=== PATIENT | female | born 1990 | race Asian ===

== ENCOUNTER 2020-05-24 00:30 | Emergency (ER) | payer SELFPAY ==
[2020-05-24] MEDS ORDERED: SODIUM CHLORIDE 0.9% 1000 ML 1,000 ML IV ONE (00:50)
--- NOTE | 2020-05-24 01:12 | Emergency Department Report ---
ED Alcohol HPI - General Chief Complaint: Alcohol Stated Complaint: ETOH Time Seen by Provider: 05/24/20 00:46 Source: EMS Mode of arrival: Stretcher Limitations: Altered Mental Status, Physical Limitation - History of Present Illness Initial Comments: Patient is a 30-year-old female that presents emergency room for acute alcohol intoxication. Patient brought in by EMS. Report received from EMS. EMS states that the patient was being transported by Uber feeder driver and the Uber feeder driver dropped her off on Cipro because she kept being in the back of the car. Patient is unresponsive. Patient then picked up on the side of the road by EMS. Patient fell and has an abrasion on her right elbow and right knee. MD Complaint: alcohol intoxication Last Drink: unknown Chronic Alcohol Use: No Previous Visits for Alcohol Intoxication?: No Recent Trauma: Yes (Fall) Treatments Prior to Arrival: none - Related Data Allergies Allergy/AdvReac Type Severity Reaction Status Date / Time Unable to Assess Allergy Unverified 05/24/20 00:41 ED Review of Systems ROS: Stated complaint: ETOH Other details as noted in HPI Comment: Unobtainable due to pts medical conditions ED Past Medical Hx - Past Medical History Previous Medical History?: No - Surgical History Past Surgical History?: No - Family History Family history: no significant - Social History Smoking Status: Unknown if ever smoked Substance Use Type: Alcohol ED Physical Exam - General Limitations: Altered Mental Status General appearance: obtunded - Head Head exam: Present: atraumatic, normocephalic - Eye Eye exam: Present: normal appearance, PERRL Pupils: Present: normal accommodation - ENT ENT exam: Present: mucous membranes moist - Neck Neck exam: Present: normal inspection - Respiratory Respiratory exam: Present: normal lung sounds bilaterally. Absent: respiratory distress, wheezes, rales - Cardiovascular Cardiovascular Exam: Present: regular rate, normal rhythm. Absent: systolic murmur, diastolic murmur, rubs, gallop - GI/Abdominal GI/Abdominal exam: Present: soft, normal bowel sounds. Absent: distended, tenderness, guarding, rebound - Rectal Rectal exam: Present: deferred - Extremities Exam Extremities exam: Present: normal inspection - Back Exam Back exam: Present: normal inspection - Neurological Exam Neurological exam: Present: altered - Expanded Neurological Exam Expanded Best Eye Response ([place]): (2) open to pain Best Motor Response ([place]): (5) localizes to pain Best Verbal Response ([place]): (2) incomprehsible sounds [place] Total: 9 - Skin Skin exam: Present: warm, dry, normal color, abrasion (Right knee). Absent: rash ED Course - Reevaluation(s) Reevaluation #1: Patient is more arousable. Patient answering some questions. Patient oriented x1. 05/24/20 01:52 Reevaluation #2: Patient is awake alert and oriented x3. Patient states she drank a lot. Patient denies pain. 05/24/20 04:54 Reevaluation #3: Patient signed out to oncoming physician, Dr. Timothy Mendieta. The final disposition will come from Dr. Fowler. Patient will require reassessment and reevaluation prior to discharge once the patient is clinically sober. 05/24/20 06:04 ED Medical Decision Making - Lab Data Result diagrams: 05/24/20 01:58 05/24/20 01:58 - Radiology Data Radiology results: report reviewed CT HEAD WITHOUT CONTRAST INDICATION: Alcohol Intoxication. ams TECHNIQUE: Axial slices were obtained through the head. Coronal and sagittal reformatted images were obtained. COMPARISON: None available. FINDINGS: There is motion artifact limiting this exam. There is no intracranial hemorrhage or extra-axial fluid collection. Ventricles, basilar cisterns, and sulci appear within normal limits for age. There is no mass lesion or midline shift. No acute territorial infarct is identified. Bone windows demonstrate no acute osseous abnormality. Paranasal sinuses and mastoid air cells appear clear. TECHNIQUE: All CT scans at this facility use dose modulation, iterative reconstruction, automated exposure control, weight based dosing, when appropriate, to reduce radiation dose to as low as reasonably achievable. IMPRESSION: 1. No acute intracranial abnormality. - Medical Decision Making Patient is a 30-year-old female that presents emergency room for altered mental status. Patient had a head CT for altered mental status and it was negative for acute findings. Patient had labs done which were essentially markable except for elevated blood alcohol. Patient given fluids and a banana bag. Patient mentation improved. Patient became arousable. Patient monitored for adequate amount of time. - Differential Diagnosis Altered mental status, acute intoxication, drug abuse. Critical care attestation.: If time is entered above; I have spent that time in minutes in the direct care of this critically ill patient, excluding procedure time. ED Disposition Clinical Impression: Altered mental state Qualifiers: Altered mental status type: unspecified Qualified Code(s): R41.82 - Altered mental status, unspecified Fall Qualifiers: Encounter type: initial encounter Qualified Code(s): W19.XXXA - Unspecified fall, initial encounter Acute alcohol intoxication Qualifiers: Complication of substance-induced condition: with unspecified complication Qualified Code(s): F10.929 - Alcohol use, unspecified with intoxication, unspecified Knee abrasion Qualifiers: Encounter type: initial encounter Laterality: right Qualified Code(s): S80.211A - Abrasion, right knee, initial encounter Disposition: DC TO HOME OR SELFCARE Is pt being admited?: No Does the pt Need Aspirin: No Condition: Stable Instructions: At-Risk Alcohol Use (ED), Alcohol Withdrawal (ED), Abuse of Alcohol (ED) Additional Instructions: Patient to follow-up with primary care in 2 to 3 days. Patient to reduce alcohol intake. Patient to rest. Patient to increase water. Patient to take Tylenol or ibuprofen as needed for pain. Patient to return to the ER if condit ion worsens, changes or new symptoms arise. Referrals: PRIMARY CARE, [Primary Care Provider] - 2-3 Days
--- NOTE | 2020-05-24 01:25 | Cat Scan Report ---
CT HEAD WITHOUT CONTRAST INDICATION: Alcohol Intoxication. ams TECHNIQUE: Axial slices were obtained through the head. Coronal and sagittal reformatted images were obtained. COMPARISON: None available. FINDINGS: There is motion artifact limiting this exam. There is no intracranial hemorrhage or extra-axial fluid collection. Ventricles, basilar cisterns, an d sulci appear within normal limits for age. There is no mass lesion or midline shift. No acute kinga torial infarct is identified. Bone windows demonstrate no acute osseous abnormality. Paranasal sinuses and mastoid air cells appear clear. TECHNIQUE: All CT scans at this facility use dose modulation, iterative reconstruction, automated ex posure control, weight based dosing, when appropriate, to reduce radiation dose to as low as reasonab ly achievable. IMPRESSION: 1. No acute intracranial abnormality. Signer Name: Reji Cm MD Signed: 05/24/2020 1:20 AM Workstation Name: [id number]
[2020-05-24 01:49] LABS: Bilirubin,Urine NEG (Negative); Blood,Urine NEG (Negative); Color,Urine Colorless (Yellow); Protein,Urine <15 mg/dL mg/dL (Negative); Urobilinogen,Urine < 2.0 mg/dL (<2.0); WBC,Urine < 1.0 /HPF (0.0-6.0)
[2020-05-24 01:57] LABS: Amphetamine Screen,Urine PRESUMPTIVE NEGATIVE; Benzodiazepines Screen,Urine PRESUMPTIVE NEGATIVE; Cannabinoid Screen,Urine PRESUMPTIVE POSITIVE; Cocaine Screen,Urine PRESUMPTIVE NEGATIVE; Methadone Screen,Urine PRESUMPTIVE NEGATIVE; Opiate Screen,Urine PRESUMPTIVE NEGATIVE
[2020-05-24 02:29] LABS: Basophils % (Auto) 0.7 % (0.0-1.8); Eosinophils # (Auto) 0.1 K/mm3 (0.0-0.4); Eosinophils % (Auto) 1.1 % (0.0-4.3); Hematocrit 39.8 % (30.3-42.9); Hemoglobin 13.6 gm/dl (10.1-14.3); Lymphocytes # (Auto) 2.8 K/mm3 (1.2-5.4); Lymphocytes % (Auto) 43.9 % (13.4-35.0); Mean Corpuscular HGB Conc 34 % (30-34); Mean Corpuscular Volume 96 fl (79-97); Monocytes # (Auto) 0.6 K/mm3 (0.0-0.8); Monocytes % (Auto) 8.6 % (0.0-7.3); Platelet Count 180 K/mm3 (140-440); Red Blood Count 4.15 M/mm3 (3.65-5.03); Red Cell Distribution Width 14.7 % (13.2-15.2)
[2020-05-24 02:38] LABS: Alanine Aminotransferase 15 units/L (7-56); Albumin 4.7 g/dL (3.9-5); Blood Urea Nitrogen 4 mg/dL (7-17); Calcium 8.5 mg/dL (8.4-10.2); Hemolysis Index 4
[2020-05-24 02:53] LABS: BUN/Creatinine Ratio 7
[2020-05-24] MEDS ORDERED: THIAMINE 100 MG, FOLIC ACID 1 MG, MULTIPLE VITAMIN INJ, ADULT 10 ML in SODIUM CHLORIDE ... IV ONE (03:40)
[2020-05-24 06:29] VITALS: BP 138/77
== END 2020-05-24 10:00 | disposition home or self-care (01) ==
LOC: ED 00:30
DX: S80.211A Abrasion, right knee, initial encounter (principal); F10.929 Alcohol use, unspecified with intoxication, unspecified; R41.82 Altered mental status, unspecified; W19.XXXA Unspecified fall, initial encounter; Y93.89 Activity, other specified; Y92.89 Other specified places as the place of occurrence of the external cause; Y99.8 Other external cause status
CPT/HCPCS: 36415; 70450; 80053; 80307; 81001; 84703; 85025; 96360; 99285; J3411; J7030; 80320; G0480

== ENCOUNTER 2020-12-05 12:32 | Emergency (ER) | payer SELFPAY ==
--- NOTE | 2020-12-05 13:33 | Event Note ---
ED Screening Note Date of service: 12/05/20 Time: 13:32 ED Screening Note: Patient complains of upper/mid abdominal pain starting upon awakening this morning Denies any nausea/vomiting/diarrhea Admits to some alcohol intake last night No history of GERD Describes the pain as cramping Tenderness to palpation in the epigastric and periumbilical region on exam This initial assessment/diagnostic orders/clinical plan/treatment(s) is/are subject to change based on patients health status, clinical progression and re- assessment by fellow clinical providers in the ED. Further treatment and workup at subsequent clinical providers discretion. Patient/guardian urged not to elope from the ED as their condition may be serious if not clinically assessed and managed. Initial orders include: Labs
[2020-12-05 14:32] LABS: Basophils # (Auto) 0.1 K/mm3 (0.0-0.1); Basophils % (Auto) 1.4 % (0.0-1.8); Eosinophils # (Auto) 0.1 K/mm3 (0.0-0.4); Eosinophils % (Auto) 1.3 % (0.0-4.3); Hematocrit 38.9 % (30.3-42.9); Hemoglobin 13.4 gm/dl (10.1-14.3); Lymphocytes # (Auto) 2.1 K/mm3 (1.2-5.4); Mean Corpuscular HGB Conc 35 % (30-34); Mean Corpuscular Volume 96 fl (79-97); Monocytes # (Auto) 0.5 K/mm3 (0.0-0.8); Monocytes % (Auto) 9.4 % (0.0-7.3); Platelet Count 212 K/mm3 (140-440); Red Blood Count 4.06 M/mm3 (3.65-5.03); Red Cell Distribution Width 13.4 % (13.2-15.2)
[2020-12-05 14:51] LABS: Alanine Aminotransferase 33 units/L (7-56); Albumin 4.3 g/dL (3.9-5); Blood Urea Nitrogen 7 mg/dL (7-17); Calcium 8.9 mg/dL (8.4-10.2); Hemolysis Index 57
[2020-12-05 14:53] LABS: BUN/Creatinine Ratio 10
[2020-12-05 15:26] LABS: Bilirubin,Urine NEG (Negative); Blood,Urine NEG (Negative); Color,Urine Yellow (Yellow); Mucus,Urine FEW /HPF; Protein,Urine <15 mg/dL mg/dL (Negative); Urobilinogen,Urine < 2.0 mg/dL (<2.0); WBC,Urine < 1.0 /HPF (0.0-6.0)
[2020-12-05] MEDS ORDERED: FAMOTIDINE 20 MG TAB PO ONE (15:29)
[2020-12-05] MEDS ORDERED: LIDOCAINE VISCOUS 2% 15 ML ORAL LIQD PO ONE (15:29)
[2020-12-05] MEDS ORDERED: ALUM-MAG HYDROXIDE-SIMETHICONE 200-200-20MG/5ML ORAL LIQD 30 ML PO ONE (15:29)
--- NOTE | 2020-12-05 20:29 | Emergency Department Report ---
ED Abdominal Pain HPI - General Chief Complaint: Abdominal Pain Stated Complaint: STOMACH PAIN Time Seen by Provider: 12/05/20 13:31 Source: patient Mode of arrival: Ambulatory Limitations: No Limitations - History of Present Illness Initial Comments: 30-year-old female, no past medical history, presents to ED with epigastric abdominal pain since this morning. Patient states she was drinking alcohol last night. States she had 4 drinks, which is a lot for her. Patient denies daily EtOH use. MD Complaint: abdominal pain -: This morning Location: epigastric Radiation: back Migration to: no migration Severity: moderate Quality: cramping Consistency: intermittent Improves With: eating Worsens With: nothing Associated Symptoms: nausea, vomiting. denies: diarrhea, fever - Related Data Previous Rx's Medication Instructions Recorded Last Taken Type Dicyclomine [Bentyl] 20 mg PO QID PRN #20 tablet 12/05/20 Unknown Rx Ondansetron [Zofran Odt] 4 mg PO Q8HR PRN #20 tab.rapdis 12/05/20 Unknown Rx Allergies Allergy/AdvReac Type Severity Reaction Status Date / Time No Known Allergies Allergy Unverified 12/05/20 15:49 ED Review of Systems ROS: Stated complaint: STOMACH PAIN Other details as noted in HPI Comment: All other systems reviewed and negative Constitutional: denies: fever Gastrointestinal: abdominal pain, nausea, vomiting ED Past Medical Hx - Past Medical History Previous Medical History?: No - Surgical History Past Surgical History?: No - Social History Smoking Status: Current Every Day Smoker Substance Use Type: Alcohol, Marijuana - Medications Home Medications: Home Medications Medication Instructions Recorded Confirmed Last Taken Type Dicyclomine [Bentyl] 20 mg PO QID PRN #20 tablet 12/05/20 Unknown Rx Ondansetron [Zofran Odt] 4 mg PO Q8HR PRN #20 tab.rapdis 12/05/20 Unknown Rx ED Physical Exam - General Limitations: No Limitations General appearance: alert, in no apparent distress - Head Head exam: Present: atraumatic, normocephalic - Eye Eye exam: Present: normal appearance, EOMI - ENT ENT exam: Present: mucous membranes moist - Neck Neck exam: Present: normal inspection - Respiratory Respiratory exam: Present: normal lung sounds bilaterally. Absent: respiratory distress - Cardiovascular Cardiovascular Exam: Present: regular rate, normal rhythm - GI/Abdominal GI/Abdominal exam: Present: soft, tenderness (Mild epigastric). Absent: disten ded - Extremities Exam Extremities exam: Present: normal inspection - Neurological Exam Neurological exam: Present: alert, oriented X3 - Psychiatric Psychiatric exam: Present: normal affect, normal mood - Skin Skin exam: Present: warm, dry, intact, normal color ED Course Vital Signs 12/05/20 12/05/20 13:35 20:29 Temperature 98.2 F 98.0 F Pulse Rate 63 60 Respiratory 15 18 Rate Blood Pressure 113/61 Blood Pressure 125/65 [Left] O2 Sat by Pulse 99 100 Oximetry ED Medical Decision Making - Lab Data Result diagrams: 12/05/20 13:55 12/05/20 13:55 - Medical Decision Making 30-year-old female presents to ED with epigastric pain radiating to the back after drinking too much alcohol last night. Lipase is mildly elevated. Patient has some mild epigastric tenderness on exam. Patient states she is able to tolerate liquids. Vital signs are stable. Remainder of labs are unremarkable. She will be discharged at this time with prescription for Zofran and Bentyl. Liquid diet advised, and patient advised to advance as tolerated. Outpatient follow-up advised, return precautions given. - Differential Diagnosis Gastritis, pancreatitis, Critical care attestation.: If time is entered above; I have spent that time in minutes in the direct care of this critically ill patient, excluding procedure time. ED Disposition Clinical Impression: Acute pancreatitis Disposition: DC-01 TO HOME OR SELFCARE Is pt being admited?: No Condition: Stable Instructions: Acute Pancreatitis, [id number], Pancreatitis Eating Plan, Abdominal Pain (ED) Prescriptions: Dicyclomine [Bentyl] 20 mg PO QID PRN #20 tablet PRN Reason: abdominal pain Ondansetron [Zofran Odt] 4 mg PO Q8HR PRN #20 tab.rapdis PRN Reason: Vomiting Referrals: PRIMARY CARE,MD [Primary Care Provider] - 3-5 Days Time of Disposition: 20:31
[2020-12-05 20:47] VITALS: BP 125/65
== END 2020-12-05 20:48 | disposition home or self-care (01) ==
LOC: ED 12:32
DX: K85.90 Acute pancreatitis without necrosis or infection, unspecified (principal); F12.90 Cannabis use, unspecified, uncomplicated; F17.200 Nicotine dependence, unspecified, uncomplicated; Z79.899 Other long term (current) drug therapy
CPT/HCPCS: 36415; 80053; 81001; 83690; 84703; 85025

== ENCOUNTER 2021-07-06 16:52 | Inpatient (IN) | payer SELFPAY ==
[2021-07-06] MEDS ORDERED: SODIUM CHLORIDE 0.9% 1000 ML 1,000 ML IV ONE ×2 (17:19→22:43)
[2021-07-06] MEDS ORDERED: MORPHINE 4 MG/1 ML INJ IV ONE ×2 (17:19→22:42)
[2021-07-06] MEDS ORDERED: ONDANSETRON 4 MG/2 ML INJ IV ONE (17:19)
--- NOTE | 2021-07-06 17:26 | Emergency Department Report ---
ED General Adult HPI - General Chief complaint: Abdominal Pain Stated complaint: ABD PAIN WITHN NAUSEA Time Seen by Provider: 07/06/21 17:11 Source: patient Mode of arrival: Ambulatory Limitations: No Limitations - History of Present Illness Initial comments: 31-year-old -[place] female patient presents with complaints of mid abdominal pain and nausea/vomiting x2 days. 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 She denies any alcohol use. She also denies any hematemesis/coffee-ground emesis, chest pain, shortness of breath, melena/hematochezia, diarrhea, dysuria/hematuria/urinary frequency, vaginal discharge, or vaginal bleeding/dyspareunia. She rates her current pain as a 9/10 in severity. Patient states she was able to tolerate food last night. No other past medical history per patient Severity scale (0 -10): 9 - Related Data Previous Rx's Medication Instructions Recorded Last Taken Type Dicyclomine [Bentyl] 20 mg PO QID PRN #20 tablet 12/05/20 Unknown Rx Ondansetron [Zofran Odt] 4 mg PO Q8HR PRN #20 tab.rapdis 12/05/20 Unknown Rx Allergies Allergy/AdvReac Type Severity Reaction Status Date / Time No Known Allergies Allergy Verified 07/06/21 17:03 ED Review of Systems ROS: Stated complaint: ABD PAIN WITHN NAUSEA Other details as noted in HPI Constitutional: denies: chills, diaphoresis, fever, malaise Respiratory: denies: cough, shortness of breath Cardiovascular: denies: chest pain Gastrointestinal: abdominal pain, nausea, vomiting. denies: diarrhea, constipation Musculoskeletal: denies: back pain Skin: denies: rash, lesions, change in color Neurological: denies: headache ED Past Medical Hx - Past Medical History Additional medical history: PANCREATITIS - Surgical History Past Surgical History?: No - Social History Smoking Status: Current Every Day Smoker Substance Use Type: Alcohol, Marijuana - Medications Home Medications: Home Medications Medication Instructions Recorded Confirmed Last Taken Type Dicyclomine [Bentyl] 20 mg PO QID PRN #20 tablet 12/05/20 Unknown Rx Ondansetron [Zofran Odt] 4 mg PO Q8HR PRN #20 tab.rapdis 12/05/20 Unknown Rx ED Physical Exam - General Limitations: No Limitations General appearance: alert, in no apparent distress - Head Head exam: Present: atraumatic, normocephalic - Eye Eye exam: Present: normal appearance. Absent: scleral icterus - Respiratory Respiratory exam: Absent: respiratory distress - Cardiovascular Cardiovascular Exam: Present: regular rate - GI/Abdominal GI/Abdominal exam: Present: soft, tenderness (Periumbilical, right lower quadrant, epigastric) - Expanded GI/Abdominal Exam Expanded GI/Abdominal exam: Absent: Felix's sign - Back Exam Back exam: Absent: CVA tenderness (R), CVA tenderness (L) - Neurological Exam Neurological exam: Present: alert, oriented X3 - Psychiatric Psychiatric exam: Present: normal affect, normal mood - Skin Skin exam: Present: warm, dry, intact, normal color. Absent: rash ED Course Vital Signs 07/06/21 07/06/21 17:04 17:40 Temperature 98.4 F Pulse Rate 74 Respiratory 16 16 Rate Blood Pressure 123/60 [Left] O2 Sat by Pulse 100 Oximetry ED Medical Decision Making - Lab Data Result diagrams: 07/06/21 18:57 07/06/21 18:57 Lab Results 07/06/21 07/06/21 07/06/21 Range/Units 18:57 18:57 18:57 WBC 6.9 (4.5-11.0) K/mm3 RBC 4.06 (3.65-5.03) M/mm3 Hgb 13.0 (10.1-14.3) gm/dl Hct 40.3 (30.3-42.9) % MCV 99 H (79-97) fl MCH 32 (28-32) pg MCHC 32 (30-34) % RDW 13.3 (13.2-15.2) % Plt Count 140 (140-440) K/mm3 Lymph % (Auto) 18.8 (13.4-35.0) % [place] % (Auto) 8.0 H (0.0-7.3) % Eos % (Auto) 0.7 (0.0-4.3) % Baso % (Auto) 0.2 (0.0-1.8) % Lymph # (Auto) 1.2 (1.2-5.4) K/mm3 [place] # (Auto) 0.5 (0.0-0.8) K/mm3 Eos # (Auto) 0.0 (0.0-0.4) K/mm3 Baso # (Auto) 0.0 (0.0-0.1) K/mm3 Seg Neutrophils % 72.3 H (40.0-70.0) % Seg Neutrophils # 4.8 (1.8-7.7) K/mm3 Sodium 141 (137-145) mmol/L Potassium 4.0 (3.6-5.0) mmol/L Chloride 107.1 H (98-107) mmol/L Carbon Dioxide 23 (22-30) mmol/L Anion Gap 15 mmol/L BUN 7 (7-17) mg/dL Creatinine 0.6 (0.6-1.2) mg/dL Estimated GFR > 60 ml/min BUN/Creatinine Ratio 12 % Glucose 87 (65-100) mg/dL Calcium 8.7 (8.4-10.2) mg/dL Total Bilirubin 0.40 (0.1-1.2) mg/dL AST 14 (5-40) units/L ALT 15 (7-56) units/L Alkaline Phosphatase 59 (35-129) units/L Total Protein 7.0 (6.3-8.2) g/dL Albumin 4.2 (3.9-5) g/dL Albumin/Globulin Ratio 1.5 % Lipase 524 H (13-60) units/L HCG, Qual Negative (Negative) Urine Color (Yellow) Urine Turbidity (Clear) Urine pH (5.0-7.0) Ur Specific [place] (1.003-1.030) Urine Protein (Negative) mg/dL Urine Glucose (UA) (Negative) mg/dL Urine Ketones (Negative) mg/dL Urine Blood (Negative) Urine Nitrite (Negative) Urine Bilirubin (Negative) Urine Urobilinogen (<2.0) mg/dL Ur Leukocyte Esterase (Negative) Urine WBC (Auto) (0.0-6.0) /HPF Urine RBC (Auto) (0.0-6.0) /HPF U Epithel Cells (Auto) (0-13.0) /HPF Urine Mucus /HPF Urine HCG, Qual (Negative) 07/06/21 Range/Units 19:31 WBC (4.5-11.0) K/mm3 RBC (3.65-5.03) M/mm3 Hgb (10.1-14.3) gm/dl Hct (30.3-42.9) % MCV (79-97) fl MCH (28-32) pg MCHC (30-34) % RDW (13.2-15.2) % Plt Count (140-440) K/mm3 Lymph % (Auto) (13.4-35.0) % [place] % (Auto) (0.0-7.3) % Eos % (Auto) (0.0-4.3) % Baso % (Auto) (0.0-1.8) % Lymph # (Auto) (1.2-5.4) K/mm3 [place] # (Auto) (0.0-0.8) K/mm3 Eos # (Auto) (0.0-0.4) K/mm3 Baso # (Auto) (0.0-0.1) K/mm3 Seg Neutrophils % (40.0-70.0) % Seg Neutrophils # (1.8-7.7) K/mm3 Sodium (137-145) mmol/L Potassium (3.6-5.0) mmol/L Chloride (98-107) mmol/L Carbon Dioxide (22-30) mmol/L Anion Gap mmol/L BUN (7-17) mg/dL Creatinine (0.6-1.2) mg/dL Estimated GFR ml/min BUN/Creatinine Ratio % Glucose (65-100) mg/dL Calcium (8.4-10.2) mg/dL Total Bilirubin (0.1-1.2) mg/dL AST (5-40) units/L ALT (7-56) units/L Alkaline Phosphatase (35-129) units/L Total Protein (6.3-8.2) g/dL Albumin (3.9-5) g/dL Albumin/Globulin Ratio % Lipase (13-60) units/L HCG, Qual (Negative) Urine Color Yellow (Yellow) Urine Turbidity Clear (Clear) Urine pH 5.0 (5.0-7.0) Ur Specific [place] 1.016 (1.003-1.030) Urine Protein <15 mg/dl (Negative) mg/dL Urine Glucose (UA) Neg (Negative) mg/dL Urine Ketones 20 (Negative) mg/dL Urine Blood Neg (Negative) Urine Nitrite Neg (Negative) Urine Bilirubin Neg (Negative) Urine Urobilinogen < 2.0 (<2.0) mg/dL Ur Leukocyte Esterase Neg (Negative) Urine WBC (Auto) 1.0 (0.0-6.0) /HPF Urine RBC (Auto) 1.0 (0.0-6.0) /HPF U Epithel Cells (Auto) 2.0 (0-13.0) /HPF Urine Mucus Few /HPF Urine HCG, Qual Negative (Negative) - Radiology Data Radiology results: report reviewed CT ABDOMEN AND PELVIS WITH CONTRAST INDICATION / CLINICAL INFORMATION: Acute Periumbilical / R.L.Q. abdominal pain. TECHNIQUE: Axial CT images were obtained through the abdomen and pelvis after 100 cc Omnipaque [address] scans at this location are performed using CT dose reduction for ALARA by means of automated exposure control. COMPARISON: None available. FINDINGS: LOWER CHEST: No significant abnormality. LIVER: There is a 2.1 x 2.4 cm enhancing lesion in the right hepatic lobe on series 2 image 46. GALLBLADDER: No significant abnormality. BILE DUCTS: No significant abnormality. PANCREAS: No significant abnormality. SPLEEN: No significant abnormality. ADRENALS: No significant abnormality. RIGHT KIDNEY / URETER: No significant abnormality. LEFT KIDNEY / URETER: No significant abnormality. STOMACH / SMALL BOWEL: No significant abnormality. COLON: No significant abnormality. APPENDIX: No significant abnormality. PERITONEUM: Trace free fluid is present and may be physiologic in a young female. No free air. No fluid collection. LYMPH NODES: No significant adenopathy. AORTA / ARTERIES: No significant abnormality. IVC / VEINS: No significant abnormality. URINARY BLADDER: No significant abnormality. REPRODUCTIVE ORGANS: There is a round uterine mass measuring 5.9 x 5.4 x 5.8 cm and appears to arise from the anterior uterus. There is mass effect on the urinary bladder. The ovaries are separately identified and appear normal. ADDITIONAL FINDINGS: None. SKELETAL SYSTEM: Incidental pars defect on the left at L3. No aggressive osseous lesion. IMPRESSION: 1. Mass arising from the anterior uterus likely represents a fibroid. If clinically indicated, this can be further assessed with ultrasound. Trace free fluid is present but may be physiologic in a young female. 2. The appendix is seen and appears normal. 3. Incidental enhancing lesion in the right hepatic lobe is nonspecific but likely represents a hemangioma. If clinically indicated, this can be further evaluated with multiphase CT or MRI. - Medical Decision Making 31-year-old -[place] female patient presents with complaints of mid abdominal pain and nausea/vomiting x2 days. 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 She denies any alcohol use. She also denies any hematemesis/coffee-ground emesis, chest pain, shortness of breath, melena/hematochezia, diarrhea, dysuria/hematuria/urinary frequency, vaginal discharge, or vaginal bleeding/dyspareunia. She rates her current pain as a 9/10 in severity. Patient states she was able to tolerate food last night. No other past medical history per patient. White count is normal. No acute abnormalities on CMP. Lipase is elevated at 424. Patient seen here last year for alcohol intoxication, however continues to deny alcohol. Pain is uncontrolled with morphine. CT is negative for any pancreatic findings, however shows mass extending from the uterus that appears to be a fibroid. Patient does not have any suprapubic pain on exam. Discussed patient with Dr. Sheridan who recommends admission. Patient accepted by Dr. Callahan, hospitalist. She is stable at this time and nontoxic-appearing Critical care attestation.: If time is entered above; I have spent that time in minutes in the direct care of this critically ill patient, excluding procedure time. ED Disposition Clinical Impression: Pancreatitis Disposition: 09 ADMITTED INPATIENT Is pt being admited?: No Condition: Stable Instructions: Abdominal Pain (ED)
[2021-07-06 19:29] LABS: Hematocrit 40.3 % (30.3-42.9); Mean Corpuscular HGB Conc 32 % (30-34); Mean Corpuscular Volume 99 fl (79-97); Platelet Count 140 K/mm3 (140-440); Red Blood Count 4.06 M/mm3 (3.65-5.03); Red Cell Distribution Width 13.3 % (13.2-15.2)
[2021-07-06 19:38] LABS: Basophils % (Auto) 0.2 % (0.0-1.8); Eosinophils % (Auto) 0.7 % (0.0-4.3); Lymphocytes # (Auto) 1.2 K/mm3 (1.2-5.4); Lymphocytes % (Auto) 18.8 % (13.4-35.0); Monocytes # (Auto) 0.5 K/mm3 (0.0-0.8)
[2021-07-06 19:40] LABS: Alanine Aminotransferase 15 units/L (7-56); Albumin 4.2 g/dL (3.9-5); Blood Urea Nitrogen 7 mg/dL (7-17); Calcium 8.7 mg/dL (8.4-10.2); Hemolysis Index 6
[2021-07-06 19:41] LABS: BUN/Creatinine Ratio 12
[2021-07-06 19:50] LABS: Bilirubin,Urine NEG (Negative); Blood,Urine NEG (Negative); Color,Urine Yellow (Yellow); Mucus,Urine FEW /HPF; Protein,Urine <15 mg/dL mg/dL (Negative); Urobilinogen,Urine < 2.0 mg/dL (<2.0)
[2021-07-06 19:51] LABS: HCG Qualitative,Urine Negative (Negative)
--- NOTE | 2021-07-06 22:19 | Cat Scan Report ---
CT ABDOMEN AND PELVIS WITH CONTRAST INDICATION / CLINICAL INFORMATION: Acute Periumbilical / R.L.Q. abdominal pain. TECHNIQUE: Axial CT images were obtained through the abdomen and pelvis after 100 cc Omnipaque [address] scans at this location are performed using CT dose reduction for ALARA by means of automated exposure control. COMPARISON: None available. FINDINGS: LOWER CHEST: No significant abnormality. LIVER: There is a 2.1 x 2.4 cm enhancing lesion in the right hepatic lobe on series 2 image 46. GALLBLADDER: No significant abnormality. BILE DUCTS: No significant abnormality. PANCREAS: No significant abnormality. SPLEEN: No significant abnormality. ADRENALS: No significant abnormality. RIGHT KIDNEY / URETER: No significant abnormality. LEFT KIDNEY / URETER: No significant abnormality. STOMACH / SMALL BOWEL: No significant abnormality. COLON: No significant abnormality. APPENDIX: No significant abnormality. PERITONEUM: Trace free fluid is present and may be physiologic in a young female. No free air. No flu id collection. LYMPH NODES: No significant adenopathy. AORTA / ARTERIES: No significant abnormality. IVC / VEINS: No significant abnormality. URINARY BLADDER: No significant abnormality. REPRODUCTIVE ORGANS: There is a round uterine mass measuring 5.9 x 5.4 x 5.8 cm and appears to arise from the anterior uterus. There is mass effect on the urinary bladder. The ovaries are separately annette ntified and appear normal. ADDITIONAL FINDINGS: None. SKELETAL SYSTEM: Incidental pars defect on the left at L3. No aggressive osseous lesion. IMPRESSION: 1. Mass arising from the anterior uterus likely represents a fibroid. If clinically indicated, this c an be further assessed with ultrasound. Trace free fluid is present but may be physiologic in a young female. 2. The appendix is seen and appears normal. 3. Incidental enhancing lesion in the right hepatic lobe is nonspecific but likely represents a heman gioma. If clinically indicated, this can be further evaluated with multiphase CT or MRI. Signer Name: Genaro Bowden MD Signed: 07/06/2021 10:15 PM Workstation Name: [id number]
[2021-07-06] MEDS ORDERED: KETOROLAC 30 MG/1 ML INJ IV ONE (22:42)
[2021-07-06] MEDS ORDERED: PANTOPRAZOLE 40 MG INJ IV ONE (22:42)
[2021-07-06] MEDS ORDERED: ALBUTEROL 2.5 MG/3 ML NEBU IH PRN (22:58)
[2021-07-06] MEDS ORDERED: ONDANSETRON 4 MG/2 ML INJ IV PRN (22:58)
[2021-07-06] MEDS ORDERED: ACETAMINOPHEN 325 MG TAB PO PRN (22:58)
[2021-07-06] MEDS ORDERED: DICYCLOMINE 20 MG TAB PO PRN (23:00)
[2021-07-06] MEDS ORDERED: D5W/0.45% NACL 1,000 ML IV SCH (23:00)
--- NOTE | 2021-07-06 23:06 | History and Physical Report ---
History of Present Illness Date of examination: 07/06/21 Date of admission: 07/06/21 Chief complaint: Abdominal pain Nausea vomiting History of present illness: 31-year-old female with history of alcohol abuse and pancreatitis was brought to the emergency room because of mid abdominal pain 9/10 and nausea/vomiting x2 days. Patient has history of alcohol induced pancreatitis states her symptoms feel similar. Patient did not drink any alcohol since Thanksgiving she also denies any hematemesis/coffee-ground emesis, chest pain, shortness of breath, melena/hematochezia, diarrhea. Patient states she was able to tolerate food last night. White count is normal. No acute abnormalities on CMP. Lipase is elevated at 424. Patient seen here last year for alcohol intoxication, however continues to deny alcohol. Pain is uncontrolled with morphine. CT is negative for any pancreatic findings, however shows mass extending from the uterus that appears to be a fibroid. Admit the patient to the MedSurg, keep the patient nothing by mouth IV fluid and Pepcid Med rec is done Past History Past Medical History: other (Alcohol abuse pancreatitis) Medications and Allergies Allergies Allergy/AdvReac Type Severity Reaction Status Date / Time No Known Allergies Allergy Verified 07/06/21 17:03 Home Medications Medication Instructions Recorded Confirmed Last Taken Type Dicyclomine [Bentyl] 20 mg PO QID PRN #20 tablet 12/05/20 Unknown Rx Ondansetron [Zofran Odt] 4 mg PO Q8HR PRN #20 tab.rapdis 12/05/20 Unknown Rx Active Meds: Active Medications Acetaminophen (Acetaminophen 325 Mg Tab) 650 mg PO Q4H PRN PRN Reason: Pain MILD(1-3)/Fever >100.5/MORALES Albuterol (Albuterol 2.5 Mg/3 Ml Nebu) 2.5 mg IH Q4HRT PRN PRN Reason: Shortness Of Breath Albuterol/Ipratropium (Ipratropium/Albuterol Sulfate 3 Ml Ampul.Neb) 1 ampul IH Q6HRT SHANTA Dicyclomine HCl (Dicyclomine 20 Mg Tab) 20 mg PO QID PRN PRN Reason: abdominal pain Famotidine (Famotidine 20 Mg/2 Ml Inj) 20 mg IV BID SHANTA Heparin Sodium (Porcine) (Heparin 5,000 Unit/1 Ml Vial) 5,000 unit SUB-Q Q8HR SHANTA Hydromorphone HCl (Hydromorphone 1 Mg/1 Ml Inj) 0.5 mg IV Q3H PRN PRN Reason: Pain , Severe (7-10) Sodium Chloride (Nacl 0.9% 1000 Ml) 1,000 mls @ 999 mls/hr IV BOLUS ONE Stop: 07/06/21 23:43 Dextrose/Sodium Chloride (D5/0.45ns) 1,000 mls @ 100 mls/hr IV DIRECT SHANTA Morphine Sulfate (Morphine 2 Mg/1 Ml Inj) 2 mg IV Q4H PRN PRN Reason: Pain, Moderate (4-6) Ondansetron HCl (Ondansetron 4 Mg/2 Ml Inj) 4 mg IV Q8H PRN PRN Reason: Nausea And Vomiting Sodium Chloride (Sodium Chloride 0.9% 10 Ml Flush Syringe) 10 ml IV BID SHANTA Sodium Chloride (Sodium Chloride 0.9% 10 Ml Flush Syringe) 10 ml IV PRN PRN PRN Reason: LINE FLUSH Review of Systems All systems: negative Gastrointestinal: abdominal pain, nausea, vomiting Exam - Constitutional Vitals: Temp Pulse Resp BP Pulse Ox 98.4 F 74 16 123/60 100 07/06/21 17:04 07/06/21 17:04 07/06/21 17:40 07/06/21 17:04 07/06/21 17:04 General appearance: Present: no acute distress, well-nourished - EENT Eyes: Present: PERRL ENT: hearing intact, clear oral mucosa - Neck Neck: Present: supple, normal ROM - Respiratory Respiratory effort: normal Respiratory: bilateral: diminished - Cardiovascular Heart Sounds: Present: S1 & S2. Absent: rub, click - Extremities Extremities: pulses symmetrical, No edema Peripheral Pulses: within normal limits - Abdominal General gastrointestinal: Present: soft, tender, non-distended, normal bowel sounds Female genitourinary: Present: normal - Integumentary Integumentary: Present: clear, warm, dry - Musculoskeletal Musculoskeletal: gait normal, strength equal bilaterally - Psychiatric Psychiatric: appropriate mood/affect, intact judgment & insight - Neurologic Neurologic: CNII-XII intact, moves all extremities Results - Labs CBC & Chem 7: 07/06/21 18:57 07/06/21 18:57 Labs: Laboratory Last Values WBC 6.9 K/mm3 (4.5-11.0) 07/06/21 18:57 RBC 4.06 M/mm3 (3.65-5.03) 07/06/21 18:57 Hgb 13.0 gm/dl (10.1-14.3) 07/06/21 18:57 Hct 40.3 % (30.3-42.9) 07/06/21 18:57 MCV 99 fl (79-97) H 07/06/21 18:57 MCH 32 pg (28-32) 07/06/21 18:57 MCHC 32 % (30-34) 07/06/21 18:57 RDW 13.3 % (13.2-15.2) 07/06/21 18:57 Plt Count 140 K/mm3 (140-440) 07/06/21 18:57 Lymph % (Auto) 18.8 % (13.4-35.0) 07/06/21 18:57 [place] % (Auto) 8.0 % (0.0-7.3) H 07/06/21 18:57 Eos % (Auto) 0.7 % (0.0-4.3) 07/06/21 18:57 Baso % (Auto) 0.2 % (0.0-1.8) 07/06/21 18:57 Lymph # (Auto) 1.2 K/mm3 (1.2-5.4) 07/06/21 18:57 [place] # (Auto) 0.5 K/mm3 (0.0-0.8) 07/06/21 18:57 Eos # (Auto) 0.0 K/mm3 (0.0-0.4) 07/06/21 18:57 Baso # (Auto) 0.0 K/mm3 (0.0-0.1) 07/06/21 18:57 Seg Neutrophils % 72.3 % (40.0-70.0) H 07/06/21 18:57 Seg Neutrophils # 4.8 K/mm3 (1.8-7.7) 07/06/21 18:57 Sodium 141 mmol/L (137-145) 07/06/21 18:57 Potassium 4.0 mmol/L (3.6-5.0) 07/06/21 18:57 Chloride 107.1 mmol/L (98-107) H 07/06/21 18:57 Carbon Dioxide 23 mmol/L (22-30) 07/06/21 18:57 Anion Gap 15 mmol/L 07/06/21 18:57 BUN 7 mg/dL (7-17) 07/06/21 18:57 Creatinine 0.6 mg/dL (0.6-1.2) 07/06/21 18:57 Estimated GFR > 60 ml/min 07/06/21 18:57 BUN/Creatinine Ratio 12 % 07/06/21 18:57 Glucose 87 mg/dL (65-100) 07/06/21 18:57 Calcium 8.7 mg/dL (8.4-10.2) 07/06/21 18:57 Total Bilirubin 0.40 mg/dL (0.1-1.2) 07/06/21 18:57 AST 14 units/L (5-40) 07/06/21 18:57 ALT 15 units/L (7-56) 07/06/21 18:57 Alkaline Phosphatase 59 units/L (35-129) 07/06/21 18:57 Total Protein 7.0 g/dL (6.3-8.2) 07/06/21 18:57 Albumin 4.2 g/dL (3.9-5) 07/06/21 18:57 Albumin/Globulin Ratio 1.5 % 07/06/21 18:57 Lipase 524 units/L (13-60) H 07/06/21 18:57 HCG, Qual Negative (Negative) 07/06/21 18:57 Urine Color Yellow (Yellow) 07/06/21 19:31 Urine Turbidity Clear (Clear) 07/06/21 19:31 Urine pH 5.0 (5.0-7.0) 07/06/21 19:31 Ur Specific [place] 1.016 (1.003-1.030) 07/06/21 19:31 Urine Protein <15 mg/dl mg/dL (Negative) 07/06/21 19:31 Urine Glucose (UA) Neg mg/dL (Negative) 07/06/21 19:31 Urine Ketones 20 mg/dL (Negative) 07/06/21 19:31 Urine Blood Neg (Negative) 07/06/21 19:31 Urine Nitrite Neg (Negative) 07/06/21 19:31 Urine Bilirubin Neg (Negative) 07/06/21 19:31 Urine Urobilinogen < 2.0 mg/dL (<2.0) 07/06/21 19:31 Ur Leukocyte Esterase Neg (Negative) 07/06/21 19:31 Urine WBC (Auto) 1.0 /HPF (0.0-6.0) 07/06/21 19:31 Urine RBC (Auto) 1.0 /HPF (0.0-6.0) 07/06/21 19:31 U Epithel Cells (Auto) 2.0 /HPF (0-13.0) 07/06/21 19:31 Urine Mucus Few /HPF 07/06/21 19:31 Urine HCG, Qual Negative (Negative) 07/06/21 19:31 - Imaging and Cardiology CT scan - abdomen: report reviewed Assessment and Plan VTE prophylaxis?: Chemical Plan of care discussed with patient/family: Yes - Patient Problems (1) Pancreatitis Current Visit: Yes Status: Acute Plan to address problem: Admit the patient to the [facility]. N.p.o. D5 half-normal saline at the rate of 100 cc/h. Pepcid 20 mg IV every 12 hours. Morphine 2 mg IV every 4 hours as needed. We will recheck lipase CBC CMP in the morning. If needed will consult GI (2) Alcohol abuse Current Visit: Yes Status: Acute Plan to address problem: We counseled the patient regarding quit drinking. We will put the patient on thiamine 100 mg p.o. daily and folic acid 1 mg p.o. daily. We will put the patient on banana bag daily. We will monitor the patient closely (3) DVT prophylaxis Current Visit: Yes Status: Acute Plan to address problem: Heparin 5000 units subcu every 8 hours for DVT prophylaxis. Pepcid 20 mg IV every 12 hours for GI prophylaxis. Patient is a full code
[2021-07-06] MEDS ORDERED: 1: FOLIC ACID 1 MG, MULTIPLE VITAMIN INJ, ADULT 10 ML, THIAMINE 100 MG in SODIUM CHLORID IV SCH (23:45)
[2021-07-07] MEDS: IPRATROPIUM/ALBUTEROL SULFATE 3 ML AMPUL.NEB IH SCH (02:27)
[2021-07-07] MEDS: HYDROmorphone 1 MG/1 ML INJ IV PRN ×2 (02:48→06:35)
[2021-07-07] MEDS: HEPARIN 5,000 UNIT/1 ML VIAL SUB-Q SCH ×3 (06:36→22:15)
[2021-07-07 07:46] LABS: Basophils % (Auto) 0.4 % (0.0-1.8); Eosinophils # (Auto) 0.1 K/mm3 (0.0-0.4); Eosinophils % (Auto) 1.3 % (0.0-4.3); Hematocrit 37.5 % (30.3-42.9); Hemoglobin 12.2 gm/dl (10.1-14.3); Lymphocytes # (Auto) 1.9 K/mm3 (1.2-5.4); Lymphocytes % (Auto) 34.7 % (13.4-35.0); Mean Corpuscular HGB Conc 33 % (30-34); Mean Corpuscular Volume 100 fl (79-97); Monocytes # (Auto) 0.5 K/mm3 (0.0-0.8); Platelet Count 114 K/mm3 (140-440); Red Blood Count 3.76 M/mm3 (3.65-5.03); Red Cell Distribution Width 13.1 % (13.2-15.2)
[2021-07-07] MEDS ORDERED: MULTIPLE VITAMIN INJ, ADULT 10 ML, THIAMINE 100 MG, FOLIC ACID 1 MG in SODIUM CHLORIDE ... IV SCH ×2 (08:00)
[2021-07-07 08:18] LABS: Alanine Aminotransferase 12 units/L (7-56); Albumin 3.5 g/dL (3.9-5); Blood Urea Nitrogen 5 mg/dL (7-17); Calcium 7.7 mg/dL (8.4-10.2); Hemolysis Index 4
[2021-07-07 08:23] LABS: BUN/Creatinine Ratio 8
--- NOTE | 2021-07-07 08:59 | Progress Note ---
Assessment and Plan Assessment and plan: --Acute pancreatitis Current Visit: Yes Status: Acute Admit the patient to the [facility]. N.p.o. D5 half-normal saline at the rate of 100 cc/h. Pepcid 20 mg IV every 12 hours. Morphine 2 mg IV every 4 hours as needed. We will recheck lipase CBC CMP in the morning. If needed will consult GI --History of chronic alcohol abuse Current Visit: Yes Status: Acute We counseled the patient regarding quit drinking. Continue thiamine 100 mg p.o. daily and folic acid 1 mg p.o. daily. Continue IV fluids and supportive care --Alcohol withdrawal symptoms ; Current Visit: Yes Status: Acute Monitor for alcohol withdrawal symptoms [facility] protocol if needed --GERD; Current Visit: Yes Status: Acute Pepcid, supportive care --DVT prophylaxis Current Visit: Yes Status: Acute Plan to address problem: Heparin 5000 units subcu every 8 hours for DVT prophylaxis. Closely monitor patient and adjust management as needed Possible discharge in 1 to 2 days if stable History Interval history: I have seen and examined the patient at the bedside Patient's chart and medications reviewed Patient feels slightly better Abdominal pain slightly improved Lipase trending down Hospitalist Physical - Constitutional Vitals: Temp Pulse Resp BP Pulse Ox 97.9 F 61 18 127/56 97 07/07/21 04:15 07/07/21 04:15 07/07/21 04:15 07/07/21 04:15 07/07/21 04:15 General appearance: Present: no acute distress, well-nourished - EENT Eyes: Present: PERRL, EOM intact - Neck Neck: Present: supple, normal ROM - Respiratory Respiratory effort: normal Respiratory: bilateral: diminished, negative: rales, rhonchi, wheezing - Cardiovascular Rhythm: regular Heart Sounds: Present: S1 & S2 - Extremities Extremities: no ischemia, No edema - Abdominal General gastrointestinal: soft, tender (Mild tenderness, no guarding no rigidity), normal bowel sounds - Integumentary Integumentary: Present: clear, warm - Psychiatric Psychiatric: appropriate mood/affect, cooperative - Neurologic Neurologic: CNII-XII intact, moves all extremities Results - Labs CBC & Chem 7: 07/07/21 07:03 07/07/21 07:03 Labs: Laboratory Last Values WBC 5.5 K/mm3 (4.5-11.0) 07/07/21 07:03 RBC 3.76 M/mm3 (3.65-5.03) 07/07/21 07:03 Hgb 12.2 gm/dl (10.1-14.3) 07/07/21 07:03 Hct 37.5 % (30.3-42.9) 07/07/21 07:03 MCV 100 fl (79-97) H 07/07/21 07:03 MCH 32 pg (28-32) 07/07/21 07:03 MCHC 33 % (30-34) 07/07/21 07:03 RDW 13.1 % (13.2-15.2) L 07/07/21 07:03 Plt Count 114 K/mm3 (140-440) L 07/07/21 07:03 Lymph % (Auto) 34.7 % (13.4-35.0) 07/07/21 07:03 [place] % (Auto) 9.0 % (0.0-7.3) H 07/07/21 07:03 Eos % (Auto) 1.3 % (0.0-4.3) 07/07/21 07:03 Baso % (Auto) 0.4 % (0.0-1.8) 07/07/21 07:03 Lymph # (Auto) 1.9 K/mm3 (1.2-5.4) 07/07/21 07:03 [place] # (Auto) 0.5 K/mm3 (0.0-0.8) 07/07/21 07:03 Eos # (Auto) 0.1 K/mm3 (0.0-0.4) 07/07/21 07:03 Baso # (Auto) 0.0 K/mm3 (0.0-0.1) 07/07/21 07:03 Seg Neutrophils % 54.6 % (40.0-70.0) 07/07/21 07:03 Seg Neutrophils # 3.0 K/mm3 (1.8-7.7) 07/07/21 07:03 Sodium 142 mmol/L (137-145) 07/07/21 07:03 Potassium 3.7 mmol/L (3.6-5.0) 07/07/21 07:03 Chloride 109.7 mmol/L (98-107) H 07/07/21 07:03 Carbon Dioxide 20 mmol/L (22-30) L 07/07/21 07:03 Anion Gap 16 mmol/L 07/07/21 07:03 BUN 5 mg/dL (7-17) L 07/07/21 07:03 Creatinine 0.6 mg/dL (0.6-1.2) 07/07/21 07:03 Estimated GFR > 60 ml/min 07/07/21 07:03 BUN/Creatinine Ratio 8 % 07/07/21 07:03 Glucose 83 mg/dL (65-100) 07/07/21 07:03 Calcium 7.7 mg/dL (8.4-10.2) L 07/07/21 07:03 Total Bilirubin 0.50 mg/dL (0.1-1.2) 07/07/21 07:03 AST 11 units/L (5-40) 07/07/21 07:03 ALT 12 units/L (7-56) 07/07/21 07:03 Alkaline Phosphatase 48 units/L (35-129) 07/07/21 07:03 Total Protein 6.0 g/dL (6.3-8.2) L 07/07/21 07:03 Albumin 3.5 g/dL (3.9-5) L 07/07/21 07:03 Albumin/Globulin Ratio 1.4 % 07/07/21 07:03 Lipase 524 units/L (13-60) H 07/06/21 18:57 HCG, Qual Negative (Negative) 07/06/21 18:57 Urine Color Yellow (Yellow) 07/06/21 19:31 Urine Turbidity Clear (Clear) 07/06/21 19:31 Urine pH 5.0 (5.0-7.0) 07/06/21 19:31 Ur Specific [place] 1.016 (1.003-1.030) 07/06/21 19:31 Urine Protein <15 mg/dl mg/dL (Negative) 07/06/21 19:31 Urine Glucose (UA) Neg mg/dL (Negative) 07/06/21 19:31 Urine Ketones 20 mg/dL (Negative) 07/06/21 19:31 Urine Blood Neg (Negative) 07/06/21 19:31 Urine Nitrite Neg (Negative) 07/06/21 19:31 Urine Bilirubin Neg (Negative) 07/06/21 19:31 Urine Urobilinogen < 2.0 mg/dL (<2.0) 07/06/21 19:31 Ur Leukocyte Esterase Neg (Negative) 07/06/21 19:31 Urine WBC (Auto) 1.0 /HPF (0.0-6.0) 07/06/21 19:31 Urine RBC (Auto) 1.0 /HPF (0.0-6.0) 07/06/21 19:31 U Epithel Cells (Auto) 2.0 /HPF (0-13.0) 07/06/21 19:31 Urine Mucus Few /HPF 07/06/21 19:31 Urine HCG, Qual Negative (Negative) 07/06/21 19:31 Active Medications - Current Medications Current Medications: Generic Name Dose Route Start Last Admin Trade Name Freq PRN Reason Stop Dose Admin Acetaminophen 650 mg 07/06/21 22:58 Acetaminophen 325 Mg Tab PO Q4H PRN Pain MILD(1-3)/Fever >100.5/MORALES Albuterol 2.5 mg 07/06/21 22:58 Albuterol 2.5 Mg/3 Ml Nebu IH Q4HRT PRN Shortness Of Breath Albuterol/Ipratropium 1 ampul 07/07/21 02:00 07/07/21 02:27 Ipratropium/Albuterol Sulfate 3 Ml Ampul.Neb IH Not Given Q6HRT SHANTA Dicyclomine HCl 20 mg 07/06/21 23:00 Dicyclomine 20 Mg Tab PO QID PRN abdominal pain Famotidine 20 mg 07/07/21 10:00 Famotidine 20 Mg/2 Ml Inj IV BID SHANTA Folic Acid 1 mg 07/09/21 10:00 Folic Acid 1 Mg Tab PO DAILY SHANTA Heparin Sodium (Porcine) 5,000 unit 07/07/21 06:00 07/07/21 06:36 Heparin 5,000 Unit/1 Ml Vial SUB-Q 5,000 unit Q8HR SHANTA Administration Hydromorphone HCl 0.5 mg 07/06/21 22:58 07/07/21 06:35 Hydromorphone 1 Mg/1 Ml Inj IV 0.5 mg Q3H PRN Administration Pain , Severe (7-10) Dextrose/Sodium Chloride 1,000 mls @ 100 mls/hr 07/06/21 23:00 D5/0.45ns IV DIRECT SHANTA Multivitamins/Minerals 10 ml/ 1,011.2 mls @ 125 mls/hr 07/07/21 08:00 07/07/21 08:13 Thiamine HCl 100 mg/ Folic IV 07/08/21 18:00 125 mls/hr Acid 1 mg/ Sodium Chloride Q24H SHANTA Administration Morphine Sulfate 2 mg 07/06/21 22:58 Morphine 2 Mg/1 Ml Inj IV Q4H PRN Pain, Moderate (4-6) Multivitamins 1 each 07/09/21 10:00 Multivitamins ,Therapeutic Tab PO DAILY [facility] Ondansetron HCl 4 mg 07/06/21 22:58 07/07/21 02:49 Ondansetron 4 Mg/2 Ml Inj IV 4 mg Q8H PRN Administration Nausea And Vomiting Sodium Chloride 10 ml 07/07/21 10:00 Sodium Chloride 0.9% 10 Ml Flush Syringe IV BID [facility] Sodium Chloride 10 ml 07/06/21 22:58 Sodium Chloride 0.9% 10 Ml Flush Syringe IV PRN PRN LINE FLUSH Thiamine HCl 100 mg 07/09/21 10:00 Thiamine 100 Mg Tab PO QDAY [facility]
[2021-07-07] MEDS: FAMOTIDINE 20 MG/2 ML INJ IV SCH ×2 (09:15→22:15)
[2021-07-07] MEDS: MORPHINE 2 MG/1 ML INJ IV PRN ×3 (14:05→22:16)
[2021-07-08] MEDS: IPRATROPIUM/ALBUTEROL SULFATE 3 ML AMPUL.NEB IH SCH ×2 (03:31→03:32)
[2021-07-08 04:59] VITALS: BP 108/58
[2021-07-08] MEDS: MORPHINE 2 MG/1 ML INJ IV PRN (05:04)
[2021-07-08] MEDS: HEPARIN 5,000 UNIT/1 ML VIAL SUB-Q SCH (05:41)
--- NOTE | 2021-07-08 08:08 | Discharge Summary ---
Providers - Providers Date of Admission: 07/06/21 22:58 Date of discharge: 07/08/21 Attending physician: CECI BARKSDALE Primary care physician: [employer] Hospitalization Reason for admission: Intractable nausea vomiting and abdominal pain/acute pancreatitis Condition: Stable Pertinent studies: CT abdomen and pelvis mass arising from anterior uterus possible fibroid Appendix is normal Enhancing lesion in the right hepatic lobe represents hemangioma Hospital course: 31-year-old female with history of alcohol abuse and pancreatitis was brought to the emergency room because of mid abdominal pain 9/10 and nausea/vomiting x2 days. Patient has history of alcohol induced pancreatitis states her symptoms feel similar. Patient did not drink any alcohol since giving she also denies any hematemesis/coffee-ground emesis, chest pain, shortness of breath, melena/hematochezia, diarrhea. Patient states she was able to tolerate food last night. White count is normal. No acute abnormalities on CMP. Lipase is elevated at 424. Patient seen here last year for alcohol intoxication, however continues to deny alcohol. Patient was managed with n.p.o. status and IV fluids, closely monitored clinically as well as lipase levels with significantly improved today Patient was started on clear liquids which she tolerated, today patient is hemodynamically and clinically stable for discharge Counseling done and strongly advised to quit alcohol intake and seek alcohol rehabilitation if needed Patient also advised to see private GI for further evaluation management of her recurrent pancreatitis Today patient is comfortable no new complaints, vital signs stable, stable at discharge Patient strongly advised to continue clear liquid diet and advance the diet as tolerated. Patient verbalized understanding Discharge diagnosis: --Acute pancreatitis Current Visit: Yes Status: Acute Admit the patient to the [facility]. N.p.o. D5 half-normal saline at the rate of 100 cc/h. Pepcid 20 mg IV every 12 hours. Morphine 2 mg IV every 4 hours as ne eded. We will recheck lipase CBC CMP in the morning. If needed will consult GI --History of chronic alcohol abuse Current Visit: Yes Status: Acute We counseled the patient regarding quit drinking. Continue thiamine 100 mg p.o. daily and folic acid 1 mg p.o. daily. Continue IV fluids and supportive care --Alcohol withdrawal symptoms ; Current Visit: Yes Status: Acute Monitor for alcohol withdrawal symptoms [place] protocol if needed She does not exhibit alcohol withdrawal symptoms --GERD; Current Visit: Yes Status: Acute Pepcid, supportive care --DVT prophylaxis Current Visit: Yes Status: Acute Plan to address problem: Heparin 5000 units subcu every 8 hours for DVT prophylaxis. Stable at discharge Disposition: 01 HOME / SELF CARE / HOMELESS Final Discharge Diagnosis (Prints w/discharge instructions): Acute pancreatitis symptoms significantly improved. History of chronic alcohol use. Gastroesophageal reflux disease Time spent for discharge: 35 minutes Core Measure Documentation - Palliative Care Palliative Care/ Comfort Measures: Not Applicable - Core Measures Any of the following diagnoses?: none Exam - Constitutional Vitals: Temp Pulse Resp BP Pulse Ox 98.1 F 56 L 18 108/58 95 07/08/21 04:58 07/08/21 04:58 07/08/21 04:58 07/08/21 04:58 07/08/21 04:58 Plan Activity: no restrictions Diet: advance as tolerated, other (Clear liquid diet, advance as tolerated) Additional Instructions: Advised to quit alcohol intake, recommended to seek alcohol rehabilitation if needed. Advance diet as tolerated. Follow private GI as outpatient for further evaluation and management. If you have worsening symptoms contact MD or go to the nearest emergency room as needed Follow up with: PRIMARY CARE, [Primary Care Provider] - 3-5 Days RUBI MELARA MD [Staff Physician] - 7 Days Prescriptions: Dicyclomine [Bentyl] 20 mg PO QID PRN #20 tablet PRN Reason: abdominal pain Folic Acid [Folvite] 1 mg PO DAILY #30 tablet Multivitamin Tab [Multiple Vitamin TAB (Theragran)] 1 each PO DAILY #30 tablet Thiamine [Vitamin B-1] 100 mg PO QDAY #30 tablet Ondansetron [Zofran ODT TAB] 4 mg PO Q8HR PRN #20 tab.rapdis PRN Reason: Vomiting
[2021-07-08] MEDS: HYDROmorphone 1 MG/1 ML INJ IV PRN (08:36)
[2021-07-08] MEDS: FAMOTIDINE 20 MG/2 ML INJ IV SCH (08:36)
[2021-07-09] MEDS ORDERED: THIAMINE 100 MG TAB PO SCH (10:00)
[2021-07-09] MEDS ORDERED: MULTIVITAMINS ,THERAPEUTIC TAB PO SCH (10:00)
[2021-07-09] MEDS ORDERED: FOLIC ACID 1 MG TAB PO SCH (10:00)
== END 2021-07-08 16:36 | disposition home or self-care (01) | DRG 440 ==
LOC: ED 16:52 → 3A 22:58
PROVIDERS: ADMIT Hospitalist; ATTEND Internal Medicine
DX: K85.90 Acute pancreatitis without necrosis or infection, unspecified (principal); K21.9 Gastro-esophageal reflux disease without esophagitis; F10.10 Alcohol abuse, uncomplicated
CPT/HCPCS: 36415; 74177; 80053; 81001; 81025; 83690; 84703; 85025; 94640; G0378; J3490; J7070; Q0162; C9113; J1170; J1644; J1885; J2270; J2405; J3411; J7030; Q9967

== ENCOUNTER 2022-03-18 18:05 | Emergency (ER) | payer SELFPAY ==
--- NOTE | 2022-03-18 22:19 | Emergency Department Report ---
ED General Adult HPI - General Chief complaint: Abdominal Pain Stated complaint: SOB Time Seen by Provider: 03/18/22 22:04 Source: patient Mode of arrival: Ambulatory Limitations: No Limitations - History of Present Illness Initial comments: Is a 32-year-old female who presents for abdominal pain radiating to epigastric and shortness of breath for 1 day states sudden onset last night. Symptoms are persistent. Patient denies suspicious travel or history of PE or lobar controlled patient does not smoke. Exacerbated by movement and activity. Symptoms are relieved by nothing tried. Patient is COVID vaccinated. Patient denies fever does endorse malaise. There is no dysuria frequency or urgency. There is no vaginal discharge no vaginal bleeding menstrual cycle 3 weeks ago. - Related Data Previous Rx's Medication Instructions Recorded Last Taken Type Dicyclomine [Bentyl] 20 mg PO QID PRN #20 tablet 07/08/21 Unknown Rx Folic Acid [Folvite] 1 mg PO DAILY #30 tablet 07/08/21 Unknown Rx Multivitamin Tab [Multiple Vitamin 1 each PO DAILY #30 tablet 07/08/21 Unknown Rx TAB (Theragran)] Ondansetron [Zofran ODT TAB] 4 mg PO Q8HR PRN #20 tab.rapdis 07/08/21 Unknown Rx Thiamine [Vitamin B-1] 100 mg PO QDAY #30 tablet 07/08/21 Unknown Rx Ibuprofen [Motrin 800 MG tab] 800 mg PO Q8HR PRN #30 tablet 03/19/22 Unknown Rx Ondansetron [Zofran Odt] 4 mg PO Q8HR PRN #12 tab.rapdis 03/19/22 Unknown Rx Allergies Allergy/AdvReac Type Severity Reaction Status Date / Time No Known Allergies Allergy Verified 03/18/22 18:18 ED Review of Systems ROS: Stated complaint: SOB Other details as noted in HPI Constitutional: chills, malaise Eyes: denies: eye pain, eye discharge, vision change ENT: denies: ear pain, throat pain, congestion Respiratory: shortness of breath. denies: cough, wheezing Cardiovascular: chest pain. denies: palpitations, dyspnea on exertion Endocrine: no symptoms reported Gastrointestinal: abdominal pain, nausea. denies: vomiting, diarrhea, constipation, melena Genitourinary: denies: urgency, dysuria, frequency, hematuria, discharge Musculoskeletal: back pain Skin: denies: rash, lesions Neurological: headache. denies: numbness, paresthesias, confusion, vertigo Psychiatric: anxiety. denies: depression Hematological/Lymphatic: denies: easy bleeding, easy bruising ED Past Medical Hx - Past Medical History Hx Congestive Heart Failure: No Hx Diabetes: No Hx Asthma: No Hx COPD: No Additional medical history: PANCREATITIS - Surgical History Past Surgical History?: No - Social History Smoking Status: Never Smoker - Medications Home Medications: Home Medications Medication Instructions Recorded Confirmed Last Taken Type Dicyclomine [Bentyl] 20 mg PO QID PRN #20 tablet 07/08/21 Unknown Rx Folic Acid [Folvite] 1 mg PO DAILY #30 tablet 07/08/21 Unknown Rx Multivitamin Tab [Multiple Vitamin 1 each PO DAILY #30 tablet 07/08/21 Unknown Rx TAB (Theragran)] Ondansetron [Zofran ODT TAB] 4 mg PO Q8HR PRN #20 tab.rapdis 07/08/21 Unknown Rx Thiamine [Vitamin B-1] 100 mg PO QDAY #30 tablet 07/08/21 Unknown Rx Ibuprofen [Motrin 800 MG tab] 800 mg PO Q8HR PRN #30 tablet 03/19/22 Unknown Rx Ondansetron [Zofran Odt] 4 mg PO Q8HR PRN #12 tab.rapdis 03/19/22 Unknown Rx ED Physical Exam - General Limitations: No Limitations General appearance: alert, in no apparent distress - Head Head exam: Present: normocephalic, normal inspection - Eye Eye exam: Present: EOMI Pupils: Present: normal accommodation - ENT ENT exam: Present: normal orophraynx, mucous membranes moist - Neck Neck exam: Present: normal inspection, full ROM. Absent: tenderness, lymphadenopathy - Respiratory Respiratory exam: Present: normal lung sounds bilaterally, chest wall tenderness (Anterior chest wall tenderness to deep palpation no crepitus no step-off no swelling no ecchymosis.). Absent: wheezes, stridor, prolonged expiratory - Cardiovascular Cardiovascular Exam: Present: regular rate, normal rhythm, normal heart sounds. Absent: systolic murmur, diastolic murmur, rubs, gallop - GI/Abdominal GI/Abdominal exam: Present: soft, tenderness (Left CVA), normal bowel sounds. Absent: distended, guarding, rebound, rigid, bruit, hernia - Rectal Rectal exam: Present: deferred - Extremities Exam Extremities exam: Present: normal inspection, full ROM, normal capillary refill - Back Exam Back exam: Present: normal inspection, full ROM, CVA tenderness (L). Absent: CVA tenderness (R) - Neurological Exam Neurological exam: Present: alert, oriented X3, CN II-XII intact, normal gait - Expanded Neurological Exam Expanded Patient oriented to: Present: person, place, time Speech: Present: fluid speech Motor strength exam: RUE: 5, LUE: 5, RLE: 5, LLE: 5 Best Eye Response ([place]): (4) open spontaneously Best Motor Response ([place]): (6) obeys commands Best Verbal Response ([place]): (5) oriented [place] Total: 15 - Psychiatric Psychiatric exam: Present: normal affect, normal mood - Skin Skin exam: Present: warm, dry, intact, normal color. Absent: rash ED Course Vital Signs 03/18/22 18:16 Temperature 98.9 F Pulse Rate 76 Respiratory 18 Rate Blood Pressure 131/61 [Right] O2 Sat by Pulse 99 Oximetry ED Medical Decision Making - Lab Data Result diagrams: 03/18/22 22:17 03/18/22 22:17 Labs 03/18/22 03/18/22 03/18/22 22:17 22:17 22:17 WBC 7.2 RBC 3.89 Hgb 13.4 Hct 38.3 MCV 99 H MCH 35 H MCHC 35 H RDW 13.1 L Plt Count 195 Lymph % (Auto) 19.2 [place] % (Auto) 9.1 H Eos % (Auto) 0.5 Baso % (Auto) 0.3 Lymph # (Auto) 1.4 [place] # (Auto) 0.7 Eos # (Auto) 0.0 Baso # (Auto) 0.0 Seg Neutrophils % 70.9 H Seg Neutrophils # 5.1 PT INR APTT Sodium 136 L Potassium 4.7 Chloride 100.9 Carbon Dioxide 19 L Anion Gap 21 BUN 9 Creatinine 0.7 Estimated GFR > 60 BUN/Creatinine Ratio 13 Glucose 64 L Calcium 9.4 Total Bilirubin 0.50 AST 12 ALT 12 Alkaline Phosphatase 68 Total Protein 7.6 Albumin 4.2 Albumin/Globulin Ratio 1.2 HCG, Quant < 2 Urine Color Urine Turbidity Urine pH Ur Specific [place] Urine Protein Urine Glucose (UA) Urine Ketones Urine Blood Urine Nitrite Urine Bilirubin Urine Urobilinogen Ur Leukocyte Esterase Urine WBC (Auto) Urine RBC (Auto) U Epithel Cells (Auto) Urine Mucus 03/18/22 03/18/22 22:17 Unknown WBC RBC Hgb Hct MCV MCH MCHC RDW Plt Count Lymph % (Auto) [place] % (Auto) Eos % (Auto) Baso % (Auto) Lymph # (Auto) [place] # (Auto) Eos # (Auto) Baso # (Auto) Seg Neutrophils % Seg Neutrophils # PT 13.4 INR 0.92 APTT 29.4 Sodium Potassium Chloride Carbon Dioxide Anion Gap BUN Creatinine Estimated GFR BUN/Creatinine Ratio Glucose Calcium Total Bilirubin AST ALT Alkaline Phosphatase Total Protein Albumin Albumin/Globulin Ratio HCG, Quant Urine Color Yellow Urine Turbidity Clear Urine pH 5.0 Ur Specific [place] 1.025 Urine Protein 30 mg/dl Urine Glucose (UA) Negative Urine Ketones 160 Urine Blood Negative Urine Nitrite Negative Urine Bilirubin Negative Urine Urobilinogen 0.2 Ur Leukocyte Esterase Negative Urine WBC (Auto) < 1.0 Urine RBC (Auto) 1.0 U Epithel Cells (Auto) 16.0 H Urine Mucus Few - Radiology Data Radiology results: report reviewed, image reviewed XR chest routine 2V INDICATION / CLINICAL INFORMATION: SOB. COMPARISON: None available. FINDINGS: SUPPORT DEVICES: None. HEART /PULMONARY VASCULATURE: No significant abnormality. LUNGS / PLEURA: No significant pulmonary or pleural abnormality. No pneumothorax. ADDITIONAL FINDINGS: No significant additional findings. IMPRESSION: 1. No acute findings. Signer Name: Juni Knight MD Signed: 03/18/2022 11:49 PM Workstation Name: [id number] Transcribed By: TRESA Dictated By: JUNI KNIGHT MD Electronically Authenticated By: JUNI KNIGHT MD Signed Date/Time: 03/18/222348 DD/ 47 TD/TT: Print - Medical Decision Making Chest x-ray normal no infiltrates no opacities, labs are not noted as above patient is tolerating p.o. intake without nausea or vomiting. Pain is improved. Abdominal exam is soft nontender no peritoneal signs. Plan DC home, follow-up primary care doctor in 2 to 3 days. Return to emergency department should symptoms worsen. Patient verbalized agreement and understanding of discharge plan. Patient DC'd home in stable condition at this time. Critical care attestation.: If time is entered above; I have spent that time in minutes in the direct care of this critically ill patient, excluding procedure time. ED Disposition Clinical Impression: Viral syndrome Disposition: HOME / SELF CARE / HOMELESS Is pt being admited?: No Does the pt Need Aspirin: No Condition: Stable Instructions: Abdominal Pain (ED), Viral Illness, Adult Additional Instructions: Take medications as prescribed, hydrate as directed. Follow-up with your doctor in 2 to 3 days. Return to emergency department should symptoms worsen. Prescriptions: Ibuprofen [Motrin 800 MG tab] 800 mg PO Q8HR PRN #30 tablet PRN Reason: pain Ondansetron [Zofran Odt] 4 mg PO Q8HR PRN #12 tab.rapdis PRN Reason: Nausea Referrals: [facility] [Provider Group] - 3-5 Days Forms: Work/School Release Form(ED) Time of Disposition: 00:03
[2022-03-18 22:37] LABS: Basophils % (Auto) 0.3 % (0.0-1.8); Eosinophils % (Auto) 0.5 % (0.0-4.3); Hematocrit 38.3 % (30.3-42.9); Hemoglobin 13.4 gm/dl (10.1-14.3); Lymphocytes # (Auto) 1.4 K/mm3 (1.2-5.4); Lymphocytes % (Auto) 19.2 % (13.4-35.0); Mean Corpuscular HGB Conc 35 % (30-34); Mean Corpuscular Volume 99 fl (79-97); Monocytes # (Auto) 0.7 K/mm3 (0.0-0.8); Monocytes % (Auto) 9.1 % (0.0-7.3); Platelet Count 195 K/mm3 (140-440); Red Blood Count 3.89 M/mm3 (3.65-5.03); Red Cell Distribution Width 13.1 % (13.2-15.2)
[2022-03-18 22:47] LABS: INR 0.92 (0.87-1.13)
[2022-03-18 22:48] LABS: Partial Thromboplastin Time 29.4 Sec. (24.2-36.6)
[2022-03-18 22:58] LABS: Alanine Aminotransferase 12 units/L (7-56); Albumin 4.2 g/dL (3.9-5); Blood Urea Nitrogen 9 mg/dL (7-17); Calcium 9.4 mg/dL (8.4-10.2); Hemolysis Index 6
[2022-03-18 23:01] LABS: Bilirubin,Urine Negative (Negative); Blood,Urine Negative (Negative); Color,Urine Yellow (Yellow)
[2022-03-18 23:02] LABS: Urobilinogen,Urine 0.2 mg/dL (<2.0)
[2022-03-18 23:03] LABS: Mucus,Urine FEW /HPF; WBC,Urine < 1.0 /HPF (0.0-6.0)
[2022-03-18 23:03] LABS: BUN/Creatinine Ratio 13
[2022-03-18] MEDS ORDERED: IBUPROFEN 800 MG TAB PO ONE (23:35)
--- NOTE | 2022-03-18 23:53 | XRay Report ---
XR chest routine 2V INDICATION / CLINICAL INFORMATION: SOB. COMPARISON: None available. FINDINGS: SUPPORT DEVICES: None. HEART /PULMONARY VASCULATURE: No significant abnormality. LUNGS / PLEURA: No significant pulmonary or pleural abnormality. No pneumothorax. ADDITIONAL FINDINGS: No significant additional findings. IMPRESSION: 1. No acute findings. Signer Name: Kadeem Mabry MD Signed: 03/18/2022 11:49 PM Workstation Name: [id number]
[2022-03-19 00:17] VITALS: BP 137/73
== END 2022-03-19 00:18 | disposition home or self-care (01) ==
LOC: ED 18:05
DX: B34.9 Viral infection, unspecified (principal)
CPT/HCPCS: 36415; 71046; 80053; 81001; 84702; 85025; 85610; 85730; 99284

== ENCOUNTER 2022-03-19 16:20 | Emergency (ER) | payer SELFPAY ==
[2022-03-19 19:50] LABS: Basophils % (Auto) 0.6 % (0.0-1.8); Eosinophils # (Auto) 0.1 K/mm3 (0.0-0.4); Eosinophils % (Auto) 0.7 % (0.0-4.3); Hematocrit 40.9 % (30.3-42.9); Hemoglobin 14.3 gm/dl (10.1-14.3); Lymphocytes # (Auto) 1.6 K/mm3 (1.2-5.4); Mean Corpuscular HGB Conc 35 % (30-34); Mean Corpuscular Volume 98 fl (79-97); Monocytes # (Auto) 0.7 K/mm3 (0.0-0.8); Monocytes % (Auto) 8.8 % (0.0-7.3); Platelet Count 205 K/mm3 (140-440); Red Blood Count 4.16 M/mm3 (3.65-5.03); Red Cell Distribution Width 13.4 % (13.2-15.2)
[2022-03-19 20:09] LABS: Alanine Aminotransferase 13 units/L (7-56); Albumin 4.7 g/dL (3.9-5); Blood Urea Nitrogen 7 mg/dL (7-17); Calcium 9.5 mg/dL (8.4-10.2); Hemolysis Index 35
[2022-03-19 20:25] LABS: BUN/Creatinine Ratio 10
[2022-03-19 20:46] LABS: Mucus,Urine FEW /HPF
[2022-03-19 20:59] LABS: Bilirubin,Urine Negative (Negative); Blood,Urine Negative (Negative); Color,Urine Yellow (Yellow)
[2022-03-19] MEDS ORDERED: MORPHINE 4 MG/1 ML INJ IV ONE (23:29)
[2022-03-19] MEDS ORDERED: SODIUM CHLORIDE 0.9% 1000 ML 1,000 ML IV ONE (23:29)
[2022-03-19] MEDS ORDERED: ONDANSETRON 4 MG/2 ML INJ IV ONE (23:29)
[2022-03-20 00:14] LABS: Amphetamine Screen,Urine PRESUMPTIVE NEGATIVE; Benzodiazepines Screen,Urine PRESUMPTIVE NEGATIVE; Cannabinoid Screen,Urine PRESUMPTIVE POSITIVE; Cocaine Screen,Urine PRESUMPTIVE NEGATIVE; Methadone Screen,Urine PRESUMPTIVE NEGATIVE; Opiate Screen,Urine PRESUMPTIVE NEGATIVE
--- NOTE | 2022-03-20 01:37 | Cat Scan Report ---
CT ABDOMEN AND PELVIS WITH CONTRAST HISTORY: Abdominal Pain. COMPARISON: None. TECHNIQUE: CT images of the abdomen and pelvis were obtained following administration of intravenous contrast. All CT scans at this location are performed using CT dose reduction for ALARA by means of automated exposure control. CONTRAST: 100 ml of intravenous contrast administered. FINDINGS: Lungs/bones: Lung bases are clear Abdomen/pelvis: There is diffuse fatty infiltration the liver. There is enhancing lesion within the right hepatic lobe measuring 2.4 x 2.15 cm. This appears unchanged since prior examination. Spleen, a drenal glands, pancreas and upper GI tract appear normal. Bilateral kidneys appear normal. Uterus is slightly prominent and heterogeneous in appearance. Prominent uterine mass/fibroid is again suggested appears similar to prior exam. No focal bowel loop abnormality is seen. Appendix visualized appears normal. No acute bone findings. IMPRESSION: 1. Uterine mass could represent a fibroid. This appears similar in size and appearance to prior exami [facility]. Pelvic ultrasound is follow-up could be performed. 2. Enhancing lesion right hepatic lobe may represent hemangioma. No significant change since prior ex am. Signer Name: Brice Shay MD Signed: 03/20/2022 1:33 AM Workstation Name: [id number]
--- NOTE | 2022-03-20 01:42 | Emergency Department Report ---
ED General Adult HPI - General Chief complaint: Abdominal Pain Stated complaint: ABD/BACK PAIN/VOMITING PUI?: No Time Seen by Provider: 03/19/22 23:27 Source: patient Mode of arrival: Ambulatory Limitations: No Limitations - History of Present Illness Initial comments: LT FLANK PAIN RADIATES INTO THE FRONT X 4 DAYS, STATES THAT SHE HAS NOT BEEN ABLE TO EAT -: Gradual, days(s) Location: abdomen Radiation: abdomen Severity scale (0 -10): 10 Quality: aching Consistency: constant, intermittent Improves with: none Worsens with: none Associated Symptoms: denies: denies other symptoms, confusion, chest pain, cough, headaches, loss of appetite Treatments Prior to Arrival: none - Related Data Previous Rx's Medication Instructions Recorded Last Taken Type Dicyclomine [Bentyl] 20 mg PO QID PRN #20 tablet 07/08/21 Unknown Rx Folic Acid [Folvite] 1 mg PO DAILY #30 tablet 07/08/21 Unknown Rx Multivitamin Tab [Multiple Vitamin 1 each PO DAILY #30 tablet 07/08/21 Unknown Rx TAB (Theragran)] Ondansetron [Zofran ODT TAB] 4 mg PO Q8HR PRN #20 tab.rapdis 07/08/21 Unknown Rx Thiamine [Vitamin B-1] 100 mg PO QDAY #30 tablet 07/08/21 Unknown Rx Ibuprofen [Motrin 800 MG tab] 800 mg PO Q8HR PRN #30 tablet 03/19/22 Unknown Rx Ondansetron [Zofran Odt] 4 mg PO Q8HR PRN #12 tab.rapdis 03/19/22 Unknown Rx Allergies Allergy/AdvReac Type Severity Reaction Status Date / Time No Known Allergies Allergy Verified 03/18/22 18:18 ED Review of Systems ROS: Stated complaint: ABD/BACK PAIN/VOMITING Other details as noted in HPI Constitutional: denies: chills, fever Eyes: denies: eye pain, eye discharge, vision change ENT: denies: ear pain, throat pain Respiratory: denies: cough, shortness of breath, wheezing Cardiovascular: denies: chest pain, palpitations Endocrine: no symptoms reported Gastrointestinal: denies: abdominal pain, nausea, diarrhea Genitourinary: denies: urgency, dysuria, discharge Musculoskeletal: denies: back pain, joint swelling, arthralgia Skin: denies: rash, lesions Neurological: denies: headache, weakness, paresthesias Psychiatric: denies: anxiety, depression Hematological/Lymphatic: denies: easy bleeding, easy bruising ED Past Medical Hx - Past Medical History Hx Congestive Heart Failure: No Hx Diabetes: No Hx Deep Vein Thrombosis: No Hx Asthma: No Hx COPD: No Additional medical history: PANCREATITIS - Social History Smoking Status: Never Smoker - Medications Home Medications: Home Medications Medication Instructions Recorded Confirmed Last Taken Type Dicyclomine [Bentyl] 20 mg PO QID PRN #20 tablet 07/08/21 Unknown Rx Folic Acid [Folvite] 1 mg PO DAILY #30 tablet 07/08/21 Unknown Rx Multivitamin Tab [Multiple Vitamin 1 each PO DAILY #30 tablet 07/08/21 Unknown Rx TAB (Theragran)] Ondansetron [Zofran ODT TAB] 4 mg PO Q8HR PRN #20 tab.rapdis 07/08/21 Unknown Rx Thiamine [Vitamin B-1] 100 mg PO QDAY #30 tablet 07/08/21 Unknown Rx Ibuprofen [Motrin 800 MG tab] 800 mg PO Q8HR PRN #30 tablet 03/19/22 Unknown Rx Ondansetron [Zofran Odt] 4 mg PO Q8HR PRN #12 tab.rapdis 03/19/22 Unknown Rx ED Physical Exam - General Limitations: No Limitations General appearance: alert, in no apparent distress - Head Head exam: Present: atraumatic, normocephalic - Eye Eye exam: Present: normal appearance - ENT ENT exam: Present: mucous membranes moist - Neck Neck exam: Present: normal inspection - Respiratory Respiratory exam: Present: normal lung sounds bilaterally. Absent: respiratory distress - Cardiovascular Cardiovascular Exam: Present: regular rate, normal rhythm. Absent: systolic murmur, diastolic murmur, rubs, gallop - GI/Abdominal GI/Abdominal exam: Present: tenderness, normal bowel sounds. Absent: guarding, rebound - Extremities Exam Extremities exam: Present: normal inspection - Back Exam Back exam: Present: normal inspection - Neurological Exam Neurological exam: Present: alert, oriented X3 - Psychiatric Psychiatric exam: Present: normal affect, normal mood - Skin Skin exam: Present: warm, dry, intact, normal color. Absent: rash ED Course Vital Signs 03/19/22 03/19/22 03/19/22 19:16 23:30 23:35 Temperature 98.7 F Pulse Rate 87 70 Respiratory 18 18 Rate Blood Pressure 145/90 135/69 O2 Sat by Pulse 96 100 100 Oximetry 03/20/22 00:25 Temperature Pulse Rate 62 Respiratory 18 Rate Blood Pressure 135/78 O2 Sat by Pulse 100 Oximetry ED Medical Decision Making - Lab Data Result diagrams: 03/19/22 19:27 03/19/22 19:27 - Radiology Data Radiology results: report reviewed, image reviewed - Medical Decision Making wok up showed normal wbc , lipase slightly up not hanged from before history of alcohol, CT showed fibroids, discussed with patient pain meds given will send to [facility] Critical care attestation.: If time is entered above; I have spent that time in minutes in the direct care of this critically ill patient, excluding procedure time. ED Disposition Clinical Impression: Alcohol abuse, Fibroids Disposition: 01 HOME / SELF CARE / HOMELESS Is pt being admited?: No Does the pt Need Aspirin: No Condition: Stable Instructions: Abdominal Pain (ED), Uterine Fibroids, Substance Use Disorder and Mental Illness Referrals: JOVANNA BOOTH MD [Staff Physician] - 3-5 Days
[2022-03-20 02:55] VITALS: BP 113/53
== END 2022-03-20 02:55 | disposition home or self-care (01) ==
LOC: ED 16:20
DX: F10.10 Alcohol abuse, uncomplicated (principal); D21.9 Benign neoplasm of connective and other soft tissue, unspecified; Z79.899 Other long term (current) drug therapy; Y90.9 Presence of alcohol in blood, level not specified
CPT/HCPCS: 36415; 74177; 80053; 80307; 81001; 82010; 82150; 83690; 84703; 85025; 86140; 87086; 96361; 96374; 96375; 99284; J2270; J2405; J7030; Q9967; 81025